=== PATIENT | male | born 2005 | race Caucasian/White ===

== ENCOUNTER 2024-04-28 13:05 | Emergency (ER) | payer SELFPAY ==
[2024-04-28 14:07] LABS: Band 1 % (5-11); Eosinophils 1 % (0-10); Hematocrit 48.9 % (42.0-52.0); Hemoglobin 14.8 g/dL (14.0-18.0); Lymphocytes 13 % (28-48); MDiff Complete? YES; Mean Corpuscular HGB CONC 30.4 g/dL (32.0-36.0); Mean Corpuscular Hemoglobin 25.3 pg (25.0-35.0); Mean Corpuscular Volume 83.3 fl (78.0-98.0); Mean Platelet Volume 9.3 fL (7.4-10.4); Monocytes 8 % (0-4); Neutrophil 69 % (31-61); Platelet Adequacy Comment Appears Adequate; Platelet Count 231 10x3/uL (130-400); Red Blood Cell (RBC) Count 5.86 mill/uL (4.00-5.20); White Blood Cell (WBC) Count 8.2 10x3/uL (4.8-10.8)
[2024-04-28 14:09] LABS: ALT (SGPT) 24 U/L (8-55); AST (SGOT) 30 U/L (10-45); Albumin 4.9 g/dL (3.5-5.0); Alkaline Phosphatase 61 U/L (50-130); Anion Gap 15 mmol/L (10-20); BUN (Urea Nitrogen) 12 mg/dL (8.4-21.0); Bilirubin, Total 0.6 mg/dL (0.2-1.2); CK (CPK) 534 U/L (30-200); Calc. Creatinine Clearance 0 mL/min (70-130); Calcium 9.6 mg/dL (7.8-10.44); Carbon Dioxide 24 mmol/L (22-29); Chloride 104 mmol/L (98-107); Estimated GFR 127; Globulin 3.2 g/dL (2.4-3.5); Glucose 100 mg/dL (70-105); Lipase 17 U/L (8-78); Magnesium 2.1 mg/dL (1.7-2.2); Potassium 3.9 mmol/L (3.5-5.1); Protein, Total 8.1 g/dL (6.0-8.3); Sodium 139 mmol/L (136-145)
[2024-04-28 15:30] LABS: Bilirubin Negative (Negative); Blood, Urine Negative (Negative); Clarity Clear (Clear); Glucose, Urine (Dipstick) Negative (Negative); Ketone, Urine Negative (Negative); Leukocyte Trace (Negative); Nitrite Negative (Negative); Protein, Urine (Dipstick) Negative (Neg-Trace); Specific Gravity, Urine 1.015 (1.005-1.030); Urobilinogen 0.2 mg/dL (Less than 2)
[2024-04-28 15:39] LABS: Bacteria/HPF Rare-Few HPF (None Seen); CAUTI Indications for Culture Pelvic or flank pain; RBC/HPF 0-3 HPF (0-3); Squamous Epithelial 0-3 HPF (0-3); WBC/HPF 0-3 HPF (0-3)
[2024-04-28 15:40] LABS: Urine Culture Reflex No No
[2024-04-30 10:46] LABS: Chlam.trachomatis by PCR,Urine Not Detected (NotDetected); GC N.gonorrhoeae PCR,UrineVOID Not Detected (NotDetected)
== END 2024-04-28 16:12 | disposition home or self-care (01) ==
LOC: MADERS 13:05
DX: M62.82 Rhabdomyolysis (principal)
CPT/HCPCS: 71046; 80053; 81001; 82550; 83690; 83735; 85025; 87491; 87591; 93005; 96360